=== PATIENT | male | born 1950 | race Caucasian/White ===

== ENCOUNTER 2019-09-12 15:17 | Outpatient (CLI) | payer OTHER, SELFPAY ==
--- NOTE | 2019-09-12 14:45 | DI.RAD_ITS ---
EXAM: XR SHOULDER RT COMPLETE 2+V CLINICAL HISTORY: R shoulder pain TECHNIQUE: COMPARISON: No exams were available for comparison FINDINGS: Three views were obtained. There are moderate hypertrophic degenerative changes of the acromioclavic ular joint. There are prominent marginal osteophytes of the humeral head and to a lesser degree the glenoid. Cartilaginous joint space of the glenohumeral joint may be mildly thinned. No other signif icant bony abnormality seen. IMPRESSION: Degenerative changes as described above.
== END 2019-09-12 15:37 ==
PROVIDERS: PCP Family Medicine; Referring Provider Family Medicine; Visit Provider Student in an Organized Health Care Education/Training Program
DX: M19.011 Primary osteoarthritis, right shoulder (principal); S46.111A Strain of muscle, fascia and tendon of long head of biceps, right arm, initial encounter; X58.XXXA Exposure to other specified factors, initial encounter; M75.101 Unspecified rotator cuff tear or rupture of right shoulder, not specified as traumatic; M25.511 Pain in right shoulder
CPT/HCPCS: 99203; 73030

== ENCOUNTER 2019-09-22 01:00 | Outpatient (CLI) | payer OTHER, SELFPAY ==
--- NOTE | 2019-09-22 06:30 | DI.MRI_ITS ---
EXAM: MR UPPER JOINT RT WO CLINICAL HISTORY: pain rt rotator cuff tear,rupture rt long head biceps tendon,m75.101,s46.11. TECHNIQUE: Multiplanar multisequence MRI was performed. COMPARISON: CR XR SHOULDER RT COMPLETE 2+V from 09/12/2019 FINDINGS: BONES: There is no fracture or contusion pattern. JOINTS: Moderately severe degenerative changes are seen at the acromioclavicular joint. The glenohum eral joint is normal. Degenerative changes are seen at the greater tuberosity. TENDONS: Supraspinatus: There is a full-thickness tear of the supraspinatus tendon with retraction to the leve l of the acromioclavicular joint. Infraspinatus: Thickening and intermediate signal is seen in the infraspinatus tendon. This is consi stent with degeneration and/or partial tear. Subscapularis: There is a tear of the superior aspect of the subscapularis tendon. Teres [place]: Unremarkable. Biceps and [place]: There is medial displacement of the biceps tendon which is thickened and exhibits abnormal increased signal. MUSCLES: There is very mild fatty atrophy of the supraspinatus and subscapularis muscles. GLENOID LABRUM: Thickening and increased signal is seen in the superior labrum which may represent de generation and/or tear. SOFT TISSUES: Unremarkable. LIGAMENTS: Coracoclavicular ligament appears intact. OTHER: There is fluid in the subacromial subdeltoid bursa. Round small hypointense lesions are seen in the subcoracoid bursa which may represent loose bodies. IMPRESSION: 1. Full-thickness and retracted tear of the supraspinatus tendon. 2. Full-thickness tear of the superior aspect of the subscapularis tendon. 3. Medial displacement thickening of the biceps tendon. 4. Thickening and increased signal seen in the superior labrum which may represent degeneration and/o r tear. 5. Mild fatty atrophy of the supraspinatus and subscapularis muscles. 6. Degenerative changes in the shoulder particularly the acromioclavicular joint. DATA REPOSITORY:
== END 2019-09-22 01:20 ==
PROVIDERS: PCP Family Medicine; Visit Provider Student in an Organized Health Care Education/Training Program
DX: M75.101 Unspecified rotator cuff tear or rupture of right shoulder, not specified as traumatic (principal); M19.011 Primary osteoarthritis, right shoulder; S46.111A Strain of muscle, fascia and tendon of long head of biceps, right arm, initial encounter
CPT/HCPCS: 73221

== ENCOUNTER → 2019-11-23 10:13 | Outpatient (BNVA) | payer OTHER, SELFPAY | PROVIDERS: PCP Family Medicine; Referring Provider Family Medicine; Visit Provider Student in an Organized Health Care Education/Training Program | DX: S46.111A Strain of muscle, fascia and tendon of long head of biceps, right arm, initial encounter (principal); X50.9XXA Other and unspecified overexertion or strenuous movements or postures, initial encounter; M75.101 Unspecified rotator cuff tear or rupture of right shoulder, not specified as traumatic | CPT/HCPCS: 99214 ==

== ENCOUNTER → 2020-01-03 07:56 | Outpatient (BNVA) | payer OTHER, SELFPAY ==
--- NOTE | 2020-01-03 13:42 | PDOC.ANES ---
Date of service: 01/03/20 Time of Service: 13:42 Anesthesia Note Report Anesthesia Note: Reviewed patient ECHO faxed from [facility]. The study was performed in 2011 after a bout of chest pain, per the rationale note on the study. EF at 65%, some trace re
--- NOTE | 2020-01-03 13:46 | ANES_ITS ---
Anesthesia Note Anesthesia Note: Reviewed patient ECHO faxed from [facility]. The study was performed in 2012 after a bout of chest pain, per the rationale note on the study. EF at 65%, some trace tricuspid regurgitation. Of note is the age of the study: no additional documentation as to the resolution of that complaint. Only complaint per Dr. Mercado's note is the history of murmur. I have attempted to get in contact with the patient at his home number a few times today. Barring any recent complaint of chest pain or other cardiac issue and based on the information we currently have I believe this patient is clear to proceed to surgery from an anesthesia perspective.
== END ==
PROVIDERS: PCP Family Medicine; Referring Provider Family Medicine; Visit Provider Student in an Organized Health Care Education/Training Program
DX: S46.111D Strain of muscle, fascia and tendon of long head of biceps, right arm, subsequent encounter (principal); M75.101 Unspecified rotator cuff tear or rupture of right shoulder, not specified as traumatic; M19.011 Primary osteoarthritis, right shoulder; M75.51 Bursitis of right shoulder; M75.41 Impingement syndrome of right shoulder; X58.XXXD Exposure to other specified factors, subsequent encounter
CPT/HCPCS: 99214

== ENCOUNTER 2020-01-10 02:02 | Outpatient (CLI) | payer OTHER, SELFPAY ==
[2020-01-11 16:55] LABS: COVID-19 RT-PCR UVMMC Result Negative (Negative)
== END 2020-01-10 02:22 ==
PROVIDERS: PCP Family Medicine; Visit Provider Student in an Organized Health Care Education/Training Program
DX: Z11.59 Encounter for screening for other viral diseases (principal); Z01.818 Encounter for other preprocedural examination
CPT/HCPCS: U0003

== ENCOUNTER 2020-01-13 06:23 | Day surgery (SDC) | payer OTHER, SELFPAY ==
--- NOTE | 2020-01-03 10:04 | PDOC.ANES ---
Date of service: 01/03/20 Time of Service: 10:04 Anesthesia Note Report Anesthesia Note: Patient information reviewed in both our records and [facility], however, there is minimal information in both records. I attempted to call the patient to delve a little deeper into his history, however, there was no answer at home. I believe, with the minimal information we have, that he can proceed pending further workup.
[2020-01-13] VITALS (8 sets, daily range): BP systolic 94–115; BP diastolic 54–63; PULSE 57–66; RESP 15–19; TEMP 36.6–37; O2SAT 93–98
[2020-01-13] MEDS: Lactated Ringers 1,000 ML 100 ML IV (07:03)
[2020-01-13] MEDS: ceFAZolin 2 GM/50 ML BAG IVPB (07:57)
[2020-01-13] MEDS: EPINEPHrine 1 MG/ML AMP pres-free (08:57)
[2020-01-13] MEDS: Bupivacaine 0.25% Pres-Free 30 ML VIAL (08:57)
[2020-01-13] MEDS: EPINEPHrine 30 MG/30 ML VIAL (08:58)
--- NOTE | 2020-01-13 11:11 | PDOC.DSDIS_ITS ---
Discharge Plan Disposition Patient Disposition: HOME Condition: Stable Discharge Details Reason For Visit: Right shoulder surgery Attending Provider: Morgan Mercado Primary Care Provider: Dustin Cartagena Home Meds and New Rx's Prescriptions: New naproxen 250 mg tablet 250 - 500 mg PO BID PRN (Reason: Moderate pain or swelling) Qty: 60 RF: 0 aspirin 81 mg tablet,delayed release (DR/EC) 81 mg PO DAILY 14 Days Qty: 14 RF: 0 oxycodone 5 mg tablet 5 - 10 mg PO Q4H PRN (Reason: moderate to severe pain) Qty: 16 RF: 0 Continued sildenafil [Viagra] 25 MG tablet 25 mg PO DAILY RF: 0 omeprazole 10 MG capsule,delayed release(DR/EC) 10 mg PO DAILY RF: 0 rosuvastatin [Crestor] 5 MG tablet 5 mg PO DAILY RF: 0 Discharge Instructions Additional Instructions: Surgery: Shoulder arthroscopy with rotator cuff repair, distal clavicle excision, extensive debridement, and subacromial decompression. Activity: You should keep your arm at your side in a neutral position at all times except for physical therapy. Do not try to lift or raise your arm using your own muscles. You should use the sling whenever you are out of the house. You may have to adjust the abduction pillow or remove it for comfort. At home it is best to remove the sling and rest the arm on a pillow at your side or support the operative side with your other hand. You may allow the arm to dangle at your side. A physical therapy prescription will be sent electronically to begin in 2-3 weeks. Prescriptions: Aspirin 81 mg take 1 daily to prevent a blood clot for 2 weeks Naproxen 250 mg take 1-2 every 12 hours with a meal as needed for moderate pain Oxycodone 5 mg take 1-2 every 4-6 hours as needed for severe pain You may use [id number] Tylenol (acetaminophen) as needed for mild pain. These pain medications may be taken all at once or in different combinations as needed. Also, recommend Colace (docusate) as a stool softener as surgery and pain medicine cause constipation. Dressings: Remove shoulder bandage after 3 days. Leave the sticky Steri-Strips in place until they fall off or remove them after you shower. Cover the incisions with Band-Aids or leave them open to air. You may shower after 5 days. Follow-up: 10-[address] Mercado You may take off the leg compression stockings this evening at home. You may also leave them on a few days longer if you have a history of leg swelling or edema. Let us know right away if you develop any redness, drainage, fevers, chest pain, or trouble breathing. Do not drink alcohol or drive for at least 24 hours after anesthesia. Please call the office during business hours with any questions or concerns. Referrals: Morgan Mercado MD [ [facility] STAFF PHYSICIAN] - Discharge Orders Discharge Orders: Discharge Order (Routine); Ordered 01/13/20 Ordered By: Morgan Mercado DS: Diagnosis Discharge Diagnosis (1) Rupture of right long head biceps tendon: Status: Acute (2) Right rotator cuff tear: Status: Acute (3) Arthritis of right acromioclavicular joint: Status: Acute (4) Bursitis of right shoulder: Status: Acute (5) Impingement syndrome of right shoulder: Status: Acute
--- NOTE | 2020-01-13 11:19 | W.PM.OP ---
Date of service: 01/13/20 Time of Service: 11:11 Operative Note Operative Note DATE OF PROCEDURE: 01/13/20 PRE-OP DIAGNOSIS: Right: 1. Rotator cuff tear 2. LHB tendon rupture 3. Bursitis 4. Impingement 5. ACJ arthritis POST-OP DIAGNOSIS: same PROCEDURE: Right: 1. Rotator cuff repair, CPT# 66716. This involved repair of the subscapularis and supraspinatus using anchors and sutures to reattach the rotator cuff back to the footprint of the lesser and greater tuberosity. 2. Arthroscopic distal clavicle excision, CPT# 51608. This involved arthroscopically exposing the underside of the acromioclavicular joint, smoothing out bone spurs, and using a suyapa to remove approximately 5 mm of the distal clavicle so there was no bone left engaging the acromion. 3. Extensive debridement, CPT# 17372. This involved using arthroscopic hand instruments, power instruments, and radiofrequency instruments to release to release the long head of the biceps tendon and debride areas of labral tearing, synovitis, biceps tendon stump remnant, and chondromalacia about the greater and lesser tuberosities within the glenohumeral joint anteriorly, superiorly and posteriorly. 4. Subacromial decompression with partial acromioplasty, CPT# 19026. This involved using arthroscopic power instruments and a radiofrequency wand to complete a bursectomy and remove bone spurs on the undersurface of the acromion. The acute care nursing assistant was medically required in order to help assist in techniques above, which require positioning the arm, holding the arthroscope, and manipulating multiple instruments and sutures at the same time. This cannot be done without the help of an experienced acute care nursing assistant. SURGEON: Morgan Mercado [employer] DRIVER: Logan Deng ANESTHESIA: GETA and regional PATHOLOGY: none sent COMPLICATIONS: None Patient was transported to: PACU Patient's condition: stable Implants: Arthrex: 4.75mm SwiveLocks x 3 Indications: The patient was diagnosed with the above conditions and appropriately indicated for surgical intervention. Please see complete medical record for details. Findings: Exam under anesthesia: Full forward flexion, supraphysiologic external rotation consistent with subscapularis rupture, and no instability Glenohumeral joint: Profound synovitis anteriorly superiorly and posteriorly with significant labral fraying and labral SLAP tear superiorly with biceps tendon stump remnant. Nearly full-thickness subscapularis tear and obvious full-thickness superior rotator cuff tear with significant retraction to the level of the glenoid and disruption of the rotator interval and superior capsule Subacromial space: Significant bursitis with moderate subacromial bone spur and significant engaging distal clavicle acromion joint with significant fraying, delamination, and remnant tissue about the lesser and greater tuberosities. No visible long head of the biceps tendon. Minimal mobility of the rotator cuff with poor tissue quality. Procedure Description: In the operating room, general anesthesia was induced. Bilateral shoulders were examined. The patient was positioned in the beachchair position. All bony prominences were well-padded. Preoperative antibiotics were administered. The shoulder was prepped and draped in the usual sterile fashion. The correct patient, procedure, and side of the procedure were all verified prior to incision. Starting through the posterior portal a standard complete diagnostic arthroscopy was performed of the glenohumeral joint including inspection of the long head of the biceps, anterior and superior labrum, subscapularis tendon, supraspinatus and infraspinatus tendons, and axillary recess. The glenoid and humeral head cartilage as well as the posterior labrum were inspected from an anterior viewing portal. Significant findings and interventions noted above. Starting through the posterior portal, the arthroscope was directed into the subacromial space. A lateral 50 yard line lateral portal was created. A combination of power instruments and a radiofrequency ablator were used to debride bursitis anteriorly, posteriorly, and laterally as well as expose and smooth bone spurring on the undersurface of the acromion. The coracoacromial ligament was only minimally released. The bursectomy was completed viewing laterally and working from posteriorly and the rotator cuff was thoroughly inspected with findings noted above. The anterior portal was redirected towards the undersurface of the AC joint. A shaver and electrocautery device were used to clear soft tissue from the undersurface of the AC joint. A suyapa was then inserted and used to remove the distalmost 5 mm of the distal clavicle. Care was taken to alternate between working through the anterior portal and viewing through the anterior portal to ensure that proper amount of bone was removed and there was no engaging bone left behind especially superiorly. Cannulas were inserted anteriorly, anterior lateral and posterior lateral margins acromion as well as 50 yard line portal. The complex delaminated significantly retracted subscapularis and supraspinatus rotator cuff tears were mobilized using cuff liberator's and graspers as best possible. The anteriormost margins of this full-thickness tear could be retracted without undue tension over the lesser tuberosity near the rotator interval. The posterior most aspect of the supraspinatus had some slight mobility and with the infraspinatus relatively intact wrapping around could reach the posterior aspect of the shoes peroneus footprint. Centrally, there is very limited tissue mobility even after significant releases and poor tissue quality that excursion was barely able to reach the articular margin laterally. Starting anteriorly a fiber tape was passed in a inverted horizontal mattress fashion using suture passing device as well as a cinching loop stitch provisional tension and arm position was optimized and the sutures containing the subscapularis of secured to the lesser tuberosity. Attention was then turned posteriorly and in a similar fashion an inverted FiberTape mattress and a fiber loop cinch were placed at the infraspinatus supraspinatus margin and secured to a posterior anchor at the posterior aspect of the greater tuberosity centrally. The central most retracted poor tissue was slightly more reduced after reducing the anterior and posterior margins. It unfortunately had no ability to reduce in a [id number] fashion more completely or achieve compression over the footprint. However, it could just about at this time reach a medial row articular margin so an additional horizontal inverted mattress sutures placed through the anterior and posterior aspects of this tear as well as an additional FiberLink cinch mode suture anteriorly and posteriorly and brought to a single medial row anchor with acceptable reduction of the tissue to the medial footprint. There repair was found to be stable especially anteriorly posteriorly through arm range of motion. The shoulder was drained of arthroscopic fluid. All portal sites were copiously irrigated. These incisions were closed using 3-0 Monocryl in a buried fashion, covered with Mastisol, Steri-Strips, Xeroform, dry gauze, and ABDs. The dressings were covered and secured with Medipore tape. The operative extremity was placed into a sling for immobilization. The patient awoke from anesthesia without complication and was transferred to the recovery room in a stable condition.
== END 2020-01-13 13:58 | disposition home or self-care (01) ==
PROVIDERS: PCP Family Medicine; Visit Provider Student in an Organized Health Care Education/Training Program
PROC: (CPT 29805; principal; 2020-01-13 07:30)
DX: S46.111A Strain of muscle, fascia and tendon of long head of biceps, right arm, initial encounter (principal); M75.101 Unspecified rotator cuff tear or rupture of right shoulder, not specified as traumatic; M19.011 Primary osteoarthritis, right shoulder; M75.51 Bursitis of right shoulder; M75.41 Impingement syndrome of right shoulder; S43.431A Superior glenoid labrum lesion of right shoulder, initial encounter; M65.811 Other synovitis and tenosynovitis, right shoulder; G89.18 Other acute postprocedural pain; K21.9 Gastro-esophageal reflux disease without esophagitis
CPT/HCPCS: 29827; 29824; 29823; 29826; 76942; L3670; J0171; J0690; J1885; J2001; J2250; J2370; J2405; J2704

== ENCOUNTER → 2020-01-25 13:05 | Outpatient (BNVA) | payer OTHER, SELFPAY | PROVIDERS: PCP Family Medicine; Referring Provider Family Medicine; Visit Provider Student in an Organized Health Care Education/Training Program | DX: S46.111D Strain of muscle, fascia and tendon of long head of biceps, right arm, subsequent encounter (principal); X58.XXXD Exposure to other specified factors, subsequent encounter; M19.011 Primary osteoarthritis, right shoulder; M75.51 Bursitis of right shoulder; M75.41 Impingement syndrome of right shoulder ==

== ENCOUNTER → 2020-03-21 09:44 | Outpatient (BNVA) | payer OTHER, SELFPAY | PROVIDERS: PCP Family Medicine; Referring Provider Family Medicine; Visit Provider Student in an Organized Health Care Education/Training Program | DX: Z47.89 Encounter for other orthopedic aftercare (principal); M19.011 Primary osteoarthritis, right shoulder; M75.51 Bursitis of right shoulder; M75.41 Impingement syndrome of right shoulder ==